=== PATIENT | male | born 1965 | race Caucasian/White ===

== ENCOUNTER 2017-10-31 11:46 | Emergency (ER) | payer OTHER ==
[2017-10-31 11:55] VITALS: BMI 24.1
[2017-10-31 11:58] VITALS: O2SAT 99
--- NOTE | 2017-10-31 12:35 | C.PDOC ---
History Of Present Illness 52-year-old male, presents to the emergency department with complaints of sore throat for about one week. Denies fevers, rashes, recent travel, nausea/vomiting , diarrhea, shortness of breath, cough, chest pain or headache. Time Seen by Provider: 10/31/17 12:20 Chief Complaint (Nursing): ENT Problem History Per: Patient Onset/Duration Of Symptoms: Days Current Symptoms Are (Timing): Still Present Past Medical History Reviewed: Historical Data, Nursing Documentation, Vital Signs Vital Signs: Last Vital Signs Temp 98 F 10/31/17 12:54 Pulse 81 10/31/17 12:54 Resp 16 10/31/17 12:54 BP 137/70 10/31/17 12:54 Pulse Ox 99 10/31/17 12:54 - Medical History PMH: No Chronic Diseases Surgical History: No Surg Hx Family History: States: No Known Family Hx - Social History Hx Tobacco Use: No Hx Alcohol Use: No Hx Substance Use: No Review Of Systems Constitutional: Negative for: Fever, Chills, Malaise ENT: Positive for: Throat Pain. Negative for: Ear Pain, Ear Discharge, Nose Congestion, Throat Swelling Cardiovascular: Negative for: Chest Pain, Palpitations Respiratory: Negative for: Shortness of Breath Gastrointestinal: Negative for: Nausea, Vomiting Musculoskeletal: Negative for: Neck Pain Skin: Negative for: Rash Neurological: Negative for: Weakness, Headache, Dizziness Physical Exam - Physical Exam Appears: Well, Non-toxic, No Acute Distress Skin: Normal Color, Warm, Dry, No Rash Head: Normacephalic Eye(s): bilateral: Normal Inspection, EOMI Ear(s): Bilateral: Normal (no erythema) Nose: Normal Oral Mucosa: Moist Lips: Normal Appearing Throat: No Exudate, No Drooling, Other (pharyngeal and tonsilar erythema, uvula midline) Neck: Normal ROM, Trachea Midline, Supple Chest: Symmetrical Cardiovascular: Rhythm Regular, No Murmur Respiratory: Normal Breath Sounds, No Accessory Muscle Use, No Wheezing Extremity: Bilateral: Atraumatic, Normal ROM Neurological/Psych: Oriented x3, Normal Speech Gait: Steady ED Course And Treatment O2 Sat by Pulse Oximetry: 99 (RA) Pulse Ox Interpretation: Normal Medical Decision Making Medical Decision Making: Patient with sore throat for one week. Exam shows pharyngeal erythema. No signs of peritonsillar abscess. Will treat with Amoxicillin. Rx given. Patient stable for discharge. Disposition Counseled Patient/Family Regarding: Diagnosis, Need For Followup, Rx Given - Disposition Disposition: HOME/ ROUTINE Disposition Time: 12:34 Condition: GOOD Additional Instructions: take antibiotic twice a day for 10 days Take Tylenol or Motrin alternating every 4-6 hours for Fever 100.4F or higher. Rest and drink plenty of fluids to prevent dehydration. Follow up with your primary medical doctor or clinic in 2-5 days for further evaluation. Prescriptions: Amoxicillin [Amoxil 500 mg Cap] 500 mg PO BID #20 cap Instructions: Sore Throat, Adult (DC) Forms: textPlus (Serbian) Print Language: AZERI - POA Present On Arrival: None - Clinical Impression Clinical Impression: Pharyngitis - Scribe Statement The provider has reviewed the documentation as recorded by the Scribe (Yaz De La Paz) All medical record entries made by the Scribe were at my direction and personally dictated by me. I have reviewed the chart and agree that the record accurately reflects my personal performance of the history, physical exam, medical decision making, and the department course for this patient. I have also personally directed, reviewed, and agree with the discharge instructions and disposition.
[2017-10-31 12:55] VITALS: BP 137/70; PULSE 81; RESP 16; TEMP 98
== END 2017-10-31 13:03 | disposition home or self-care (01) ==
LOC: C.ER 11:46
DX: J02.9 Acute pharyngitis, unspecified (principal)

== ENCOUNTER 2018-08-30 11:25 | Emergency (ER) | payer OTHER ==
[2018-08-30 11:25] VITALS: BMI 24.1
[2018-08-30 11:39] VITALS: TEMP 98
--- NOTE | 2018-08-30 12:57 | RAD ---
Date of service: 08/30/2018 PROCEDURE: Radiographs of the Chest and Right Ribs. HISTORY: posterior rib pain COMPARISON: None available. TECHNIQUE: Frontal radiograph of the chest and multiple oblique radiographs of the right ribs were obtained. FINDINGS: RIGHT RIBS: No fracture or focal lesion visualized. LUNGS: Clear. PLEURA: No pneumothorax or pleural fluid. CARDIOVASCULAR: Normal cardiac size. No pulmonary vascular congestion. No aortic atherosclerotic calcification present OTHER FINDINGS: None. IMPRESSION: Unremarkable radiographs of the chest and right ribs. No right rib fracture.
[2018-08-30 13:26] VITALS: BP 137/72; PULSE 67; RESP 18; O2SAT 98
--- NOTE | 2018-08-30 16:46 | C.PDOC ---
History Of Present Illness 53 year old male presents to the emergency department with complaints of right- sided mid-back pain for the last two weeks which increases upon movement. Patient states that he has not taken any pain medications for it, and he denies trauma, fall, and rash. Time Seen by Provider: 08/30/18 11:48 Chief Complaint (Nursing): Back Pain History Per: Patient History/Exam Limitations: no limitations Onset/Duration Of Symptoms: Other (two weeks) Current Symptoms Are (Timing): Still Present Quality Of Discomfort: "Pain" Associated Symptoms: denies: Incontinence, New Weakness, New Numbness Exacerbating Factor(s): Movement Past Medical History Reviewed: Historical Data, Nursing Documentation, Vital Signs Vital Signs: Last Vital Signs Temp 98 F 08/30/18 11:37 Pulse 67 08/30/18 13:25 Resp 18 08/30/18 13:25 BP 137/72 08/30/18 13:25 Pulse Ox 98 08/30/18 13:25 - Medical History PMH: No Chronic Diseases Surgical History: No Surg Hx Family History: States: No Known Family Hx - Social History Hx Tobacco Use: No Hx Alcohol Use: No Hx Substance Use: No Review Of Systems Except As Marked, All Systems Reviewed And Found Negative. Constitutional: Negative for: Fever, Chills Musculoskeletal: Positive for: Back Pain (right mid-back) Skin: Negative for: Rash Physical Exam - Physical Exam Appears: Well, Non-toxic, No Acute Distress Skin: Normal Color, Warm, Dry Head: Atraumatic, Normacephalic Eye(s): bilateral: Normal Inspection, PERRL, EOMI Neck: Normal, Supple Chest: Symmetrical, No Tenderness Back: Normal Inspection, No CVA Tenderness, No Vertebral Tenderness, No Paraspinal Tenderness Extremity: Bilateral: Atraumatic, Normal Color And Temperature, Normal ROM Neurological/Psych: Oriented x3, Normal Speech, Normal Cognition, Normal Motor, Normal Sensation ED Course And Treatment O2 Sat by Pulse Oximetry: 98 (RA) Pulse Ox Interpretation: Normal - Other Rad XR Ribs and Chest X-Ray: Viewed By Me, Read By Radiologist Interpretation: IMPRESSION: Unremarkable radiographs of the chest and right ribs. No right rib fracture. Medical Decision Making Medical Decision Making: Plan: XR Ribs and Chest Disposition - Disposition Referrals: Ethel Morrison MD [Staff Provider] - Disposition: HOME/ ROUTINE Disposition Time: 13:00 Condition: GOOD Additional Instructions: SHANNAN BALL, thank you for letting us take care of you today. The emergency medical care you received today was directed at your acute symptoms. If you were prescribed any medication, please fill it and take as directed. It may take several days for your symptoms to resolve. Return to the Emergency Department if your symptoms worsen, do not improve, or if you have any other problems. Please contact your doctor or call one of the physicians/clinics you have been referred to that are listed on the Patient Visit Information form that is included in your discharge packet. Bring any paperwork you were given at discharge with you along with any medications you are taking to your follow up visit. Our treatment cannot replace ongoing medical care by a primary care provider outside of the emergency department. Thank you for allowing the [facility] team to be part of your care today. Follow up with your primary care doctor this week for re-evaluation and further management. Prescriptions: Cyclobenzaprine [Cyclobenzaprine HCl] 10 mg PO Q8 PRN #20 tab PRN Reason: Muscle Spasm Ibuprofen [Motrin] 600 mg PO Q6 PRN #20 tab PRN Reason: Pain, Moderate (4-7) Instructions: Muscle and Bone Pain (DC) Forms: Guruji (Kinyarwanda) - Clinical Impression Clinical Impression: Back pain - Scribe Statement The provider has reviewed the documentation as recorded by the Scribe (Kavon Puentes) Provider Attestation: All medical record entries made by the Scribe were at my direction and personally dictated by me. I have reviewed the chart and agree that the record accurately reflects my personal performance of the history, physical exam, medical decision making, and the department course for this patient. I have also personally directed, reviewed, and agree with the discharge instructions and disposition.
== END 2018-08-30 13:26 | disposition home or self-care (01) ==
LOC: C.ER 11:25
DX: M54.9 Dorsalgia, unspecified (principal)